=== PATIENT | male | born 1965 | race Hispanic/Latino ===

== ENCOUNTER 2016-12-04 10:49 | Outpatient (CLI) | payer BC ==
--- NOTE | 2016-12-04 12:15 | Fluoroscopy Report ---
MODIFIED BARIUM SWALLOW INDICATION: Dysphagia, throat cancer. COMPARISON: None similar at this institution. FINDINGS: Fluoroscopy with video provided by radiologist for speech therapist to assess the swallowing mechanism. Food items of various consistencies given. No aspiration or penetration noted. Small radiopaque dental fillings. Chest port partially imaged. IMPRESSION: Successful modified barium swallow. Please refer to detailed report from speech pathologist. Thank you for the opportunity to participate in this patient's care.
== END 2016-12-04 10:50 | disposition home or self-care (01) ==
LOC: PT 10:49
PROVIDERS: ATTEND Internal Medicine Hematology & Oncology
DX: R13.13 Dysphagia, pharyngeal phase (principal); Z85.89 Personal history of malignant neoplasm of other organs and systems
CPT/HCPCS: 74230

== ENCOUNTER 2017-01-01 07:28 | Outpatient (CLI) | payer BC ==
--- NOTE | 2017-01-01 14:07 | Fluoroscopy Report ---
Modified barium swallow: History: Dysphagia. Findings: There is no anatomic lesion causing obstruction to the transit of liquid semisolid and solid through the cervical esophagus. No definite aspiration noted. Additional findings will be provided by speech therapist. Impression: Findings as detailed above.
== END 2017-01-01 07:29 | disposition home or self-care (01) ==
LOC: PT 07:28
PROVIDERS: ATTEND Internal Medicine Hematology & Oncology
DX: R13.13 Dysphagia, pharyngeal phase (principal)
CPT/HCPCS: 74230